=== PATIENT | female | born 1980 | race Caucasian/White ===

== ENCOUNTER 2017-07-06 12:48 | Emergency (ER) | payer BC ==
[~2017-07-06] VITALS: Ht 162.6 cm; Wt 63.5 kg
--- NOTE | 2017-07-06 13:31 | Emergency Room Report ---
History of Present Illness General Chief Complaint: Allergic Reaction Source: Patient Present Illness HPI Patient was having a CT cardiac imaging obtained with contrast After the procedure patient had felt somewhat flushed She then had some coughing sensation in throat irritation Patient was initially given Benadryl and later given epinephrine And transfer to the ER for possible reaction Patient had MRI chest with contrast a few days ago Throughout the event patient denies any shortness of breath or difficulty with respiration however she has felt increased discomfort sensation of doom She had apparently reported to the staff that she fell her she was dying However she reports that this was from feeling weak denies any chest pain denies any back or flank pain Patient was having testing done secondary to the family history And questionable aortic valve pathology on ultrasound Allergies: Coded Allergies: AMOXICILLIN (Verified Allergy, Unknown, 07/06/17) IODINE (Verified Allergy, Unknown, 07/06/17) PENICILLINS (Verified Allergy, Unknown, 07/06/17) Patient History Past Medical History: see triage record Pertinent Family History: none Last Menstrual Period: 06/11/17 Reviewed Nursing Documentation: PMH: Agreed, PSxH: Agreed Nursing Documentation-PMH Past Medical History: No Stated History Review of Systems All Other Systems: negative except mentioned in HPI Physical Exam Vital Signs Date Time Temp Pulse Resp B/P (MAP) Pulse Ox O2 Delivery O2 Flow Rate FiO2 07/06/17 12:43 98.2 125 18 147/94 98 Room Air Sp02 EP Interpretation: reviewed, normal General Appearance: mild distress - appeared uncomfortable Head: normocephalic, atraumatic Eyes: bilateral eye PERRL, bilateral eye EOMI ENT: hearing grossly normal, normal pharynx, TMs + canals normal, uvula midline Neck: full range of motion, supple, no meningismus, no bony tend Respiratory: lungs clear, normal breath sounds, no rhonchi, no respiratory distress, no retraction, no accessory muscle use Cardiovascular #1: normal peripheral pulses, regular rate, rhythm, no edema, no gallop, no JVD, no murmur Gastrointestinal: normal bowel sounds, non tender, soft, no mass, no organomegaly, non-distended, no guarding, no hernia, no pulsatile mass, no rebound Genitourinary: no CVA tenderness Musculoskeletal: normal inspection Neurologic: oriented x3, responsive, air pumper III-XII nml as tested, motor strength/ tone normal, sensory intact Psychiatric: mood/affect normal Skin: normal color, no rash, warm/dry, palpation normal Lymphatic: normal inspection, no adenopathy Medical Decision Making Diagnostic Impression: Primary Impression: Allergic reaction ER Course Patient presents has appropriate evaluation Airway remains appropriate Patient is awake and alert She was provided with further hydration At this time after continued observation has done well and stable for close outpatient followup EKG Diagnostic Results Rate: normal Rhythm: other - sinus tach ST Segments: no acute changes Rhythm Strip Diag. Results EP Interpretation: yes Rate: 98 Rhythm: NSR, no PVC's, no ectopy Chest X-Ray Diagnostic Results Chest X-Ray Diagnostic Results : Chest X-Ray Ordered: Yes # of Views/Limited/Complete: 1 View Indication: Chest Pain EP Interpretation: Yes Interpretation: no consolidation, no effusion, no pneumothorax Impression: No acute disease Electronically Signed by: Howard Mckeon DO Last Vital Signs Date Time Temp Pulse Resp B/P (MAP) Pulse Ox O2 Delivery O2 Flow Rate FiO2 07/06/17 12:43 98.2 125 18 147/94 98 Room Air Status: improved Disposition: HOME, SELF-CARE Condition: Improved Scripts Epinephrine (Epipen 2-Ruiz) 0.3 Mg/0.3 Ml Auto.injct 0.3 MG IM PRN, #1 EA Prov: HOWARD MCKEON D.O. 07/06/17 Ranitidine Hcl* (ZANTAC*) 150 Mg Tablet 150 MG ORAL TWICE A DAY, #30 TAB Prov: HOWARD MCKEON D.O. 07/06/17 Diphenhydramine Hcl* (BENADRYL*) 25 Mg Capsule 25 MG ORAL Q6H Y for Itching, #20 CAP Prov: HOWARD MCKEON D.O. 07/06/17 Prednisone* (PREDNISONE*) 20 Mg Tablet 20 MG ORAL BID, #8 TAB Prov: HOWARD MCKEON D.O. 07/06/17 Additional Instructions: Patient is provided with the discharge instructions notified to follow up with primary doctor in the next 2-3 days otherwise return to the er with any worsening symptoms. Please note that this report is being documented using [employer] technology. This can lead to erroneous entry secondary to incorrect interpretation by the dictating instrument. HOWARD MCKEON D.O. Jul 06, 2017 13:31
[2017-07-06] MEDS ORDERED: EPIPEN 2-P0.3 MG/0.3 IM (13:44)
[2017-07-06] MEDS ORDERED: RANITIDINE HCL150 MG ORAL (13:44)
[2017-07-06] MEDS ORDERED: BENADRYL25 MG ORAL (13:44)
[2017-07-06] MEDS ORDERED: PREDNISONE20 MG ORAL (13:44)
[2017-07-06 14:35] VITALS: BP 119/80
--- NOTE | 2017-07-06 15:21 | Diagnostic Imaging Report ---
Indication: SOB chest pain Technique: One view of the chest Comparison: none Findings: Lungs and pleural spaces are clear. Heart size is normal. Impression: No acute process
--- NOTE | 2017-07-09 18:47 | Cardiology Report ---
APPROVED REPORT EKG Measurement Heart [id number] Sinus tachycardia Otherwise normal ECG
== END 2017-07-06 14:45 | disposition home or self-care (01) ==
LOC: EDBD 12:48 → EMR 13:21
DX: T78.40XA Allergy, unspecified, initial encounter (principal); X58.XXXA Exposure to other specified factors, initial encounter; R09.89 Other specified symptoms and signs involving the circulatory and respiratory systems; Z88.0 Allergy status to penicillin
CPT/HCPCS: 71010; 93005; 96361; 96374; 99284; S0028